=== PATIENT | female | born 1995 | race Two or more races ===

== ENCOUNTER 2019-01-30 23:12 | Observation (INO) | payer MEDICAID ==
[~2019-01-30] VITALS: Ht 157.5 cm; Wt 90.7 kg
[2019-01-31] MEDS ORDERED: PROMETHAZINE HCL 6.25 MG/5 ML ORAL SYRUP PO ONE (00:30)
[2019-01-31] MEDS ORDERED: PROMETHAZINE HCL 25 MG/ML 1ML IM ONE (00:30)
== END 2019-01-31 00:47 | disposition home or self-care (01) | DRG 566 ==
LOC: LDRP 23:12
PROVIDERS: ADMIT Obstetrics & Gynecology; ATTEND Obstetrics & Gynecology
DX: O62.9 Abnormality of forces of labor, unspecified (principal); Z3A.39 39 weeks gestation of pregnancy
CPT/HCPCS: 59025; 81002; 96372; G0378; J2550